=== PATIENT | female | born 1950 ===

== ENCOUNTER 2023-04-21 17:30 | Emergency (ER) | payer MEDICARE, OTHER ==
[2023-04-21 18:18] LABS: BASOPHILS ABSOLUTE AUTO 0.04 K/mm3 (0.01-0.08); BASOPHILS PERCENT AUTO 0.5 % (0.1-1.2); EOSINOPHILS ABSOLUTE AUTO 0.12 K/mm3 (0.04-0.36); EOSINOPHILS PERCENT AUTO 1.5 (0.7-5.8); HEMATOCRIT 43.5 % (34.1-44.9); HEMOGLOBIN 14.2 gm/dl (11.2-15.7); IMMATURE GRAN ABSOLUTE AUTO 0.02 K/mm3 (0.00-0.10); IMMATURE GRAN PERCENT AUTO 0.2 % (<=1.0); LYMPHOCYTES ABSOLUTE AUTO 4.03 K/mm3 (1.18-3.74); LYMPHOCYTES PERCENT AUTO 49.6 % (19.3-51.7); MEAN CORPUSCULAR HEMOGLOBIN 30.1 pg (25.6-32.2); MEAN CORPUSCULAR HGB CONC 32.6 g/dl (32.2-35.5); MEAN CORPUSCULAR VOLUME 92.2 fl (79.4-94.8); MEAN PLATELET VOLUME 11.3 fl (9.4-12.3); MONOCYTES ABSOLUTE AUTO 0.56 K/mm3 (0.24-0.36); MONOCYTES PERCENT AUTO 6.9 % (4.7-12.5); NEUTROPHILS ABSOLUTE AUTO 3.35 K/mm3 (1.56-6.13); NEUTROPHILS PERCENT AUTO 41.3 % (34.0-71.1); PLATELET COUNT,PLT 300 K/mm3 (182-369); RED BLOOD CELL COUNT 4.72 M/mm3 (3.98-5.22); WHITE BLOOD CELL COUNT,WBC 8.12 K/mm3 (3.98-10.04)
[2023-04-21 18:45] LABS: ALANINE AMINOTRANSFERASE,ALT 33 U/L (14-59); ALBUMIN 3.8 g/dl (3.4-5.0); ALKALINE PHOSPHATASE 98 U/L (46-116); ANION GAP 12.9 (5-15); ASPARTATE AMNIOTRANSFERASE,AST 17 U/L (15-37); BILIRUBIN TOTAL 0.2 mg/dL (0.2-1.0); BLOOD UREA NITROGEN,BUN 13 mg/dL (7-18); CALCIUM 8.9 mg/dL (8.5-10.1); CARBON DIOXIDE,CO2 28 mEq/L (21-32); CHLORIDE,CL 106 mEq/L (98-107); EST CRCL DRUG DOSING (CG) 48.72 mL/min; ESTIMATED GFR 59 mL/min (>60); GLUCOSE RANDOM 124 mg/dL (70-99); MAGNESIUM 2.2 mg/dL (1.8-2.4); POTASSIUM,K 3.9 mEq/L (3.5-5.1); PROTEIN TOTAL,TP 7.6 g/dl (6.4-8.2); SODIUM,NA 143 mEq/L (136-145); TSH 4.015 uIU/mL (0.358-3.74)
[2023-04-21 18:53] LABS: TROPONIN I HIGH SENSITIVITY < 4 pg/mL (<=51)
[2023-04-21] MEDS ORDERED: Ondansetron 4 MG/2 ML SDV IVPUSH ONE (19:13)
== END 2023-04-21 19:30 ==
LOC: JD.ED 17:30
DX: I44.30 Unspecified atrioventricular block (principal); R00.1 Bradycardia, unspecified; Z91.048 Other nonmedicinal substance allergy status; Z91.012 Allergy to eggs; Z88.0 Allergy status to penicillin; Z88.2 Allergy status to sulfonamides
CPT/HCPCS: 36415; 71045; 80053; 83735; 84443; 84484; 85025; 93005; 96374; 99285; J2405